=== PATIENT | female | born 1985 | race Caucasian/White ===

== ENCOUNTER 2016-04-30 11:34 | Emergency (ER) | payer OTHER ==
[2016-04-30 13:35] VITALS: BP 142/77
== END 2016-04-30 15:03 | disposition left against medical advice (07) ==
LOC: ED 11:34
DX: M54.2 Cervicalgia (principal); R51 Headache; Z53.21 Procedure and treatment not carried out due to patient leaving prior to being seen by health care provider
CPT/HCPCS: 99281

== ENCOUNTER 2018-02-02 12:20 | Emergency (ER) | payer OTHER ==
--- NOTE | 2018-02-02 13:32 | UC ---
Lower Extremity/Ankle HPI - HPI Summary HPI Summary: Pt. is a 32 y.o female who presents to the ER for swelling and pain to her right leg x 4 days. Pt. states the morning after she was trick or treating with her kids she noticed pain to her right lower leg. She states that pain increased over the last few days and she noticed redness and swelling. She denies any injuries. She fever, chills, CP or SOB. Pt. denies past medical hx. Denies recent hospitalization, long car trips, hormonal control, hx of clots. Symptoms are moderate in severity. Walking makes sxs worse. Rest and elevation make sxs better. Pt. denies IV drug use. - History of Current Complaint Chief Complaint: UCLowerExtremity Stated Complaint: LEG PAIN SWELLING Time Seen by Provider: 02/02/18 13:22 Hx Obtained From: Patient Hx Last Menstrual Period: 02/02/18 Pain Intensity: 7 - Allergies/Home Medications Allergies/Adverse Reactions: Allergies Allergy/AdvReac Type Severity Reaction Status Date / Time No Known Allergies Allergy Verified 02/02/18 13:04 Home Medications: Home Medications Albuterol 0.5% CONC NEB.LENO* 1 unit INH ONCE PRN 02/02/18 [History Confirmed 08/15] PMH/Surg Hx/FS Hx/Imm Hx Previously Healthy: Yes - Surgical History Surgical History: Yes Surgery Procedure, Year, and Place: t&a 2014. tubes tied - Family History Known Family History: Positive: None - Social History Occupation: Employed Full-time Lives: With Family Alcohol Use: Occasionally Substance Use Type: None Smoking Status (MU): Light Every Day Tobacco Smoker Type: Cigarettes Amount Used/How Often: 1/2ppd Have You Smoked in the Last Year: Yes Household Exposure Type: Cigarettes - Immunization History Most Recent Influenza Vaccination: 11/2014 Most Recent Tetanus Shot: up to date Most Recent Pneumonia Vaccination: never had Review of Systems Constitutional: Negative Respiratory: Negative Cardiovascular: Negative Neurovascular: Negative Musculoskeletal: Other: - Right leg pain and swelling Neurological: Negative Is Patient Immunocompromised?: No All Other Systems Reviewed And Are Negative: Yes Physical Exam Triage Information Reviewed: Yes Appearance: Well-Appearing - Pt. sitting in chair in NAD. Vital Signs: Initial Vital Signs Temp 97.5 F 02/02/18 12:56 Pulse 81 02/02/18 12:56 Resp 18 02/02/18 12:56 BP 155/88 02/02/18 12:56 Pulse Ox 98 02/02/18 12:56 Eyes: Positive: Conjunctiva Clear Neck exam: Normal Respiratory: Positive: Lungs clear, Normal breath sounds Cardiovascular: Positive: RRR, No Murmur Musculoskeletal: Positive: Other: - Good palpable pedal pulse to right foot. Diffuse mild edema to foot extending up to below knee. Mild erythema noted along the medial aspect of calf extending behind knee. No induration or fluctuance. Compartment is compressible Neurological Exam: Normal Skin Exam: Other - Numerous healed red bose to bilateral LEs (pt. states they are old flea bites) Lower Extremity Course/Dx - Course Course Of Treatment: IMPRESSION: Pt. presenting with swelling, pain and redness to her right lower leg. She is afebrile with stable VS. No CP or SOB. U/ S ordered for further evaluation. U/S reading per radiology: 1. No sonographic evidence of DEEP vein thrombosis. 2. There is occlusive thrombus from the distal thigh level great saphenous vein extending. to the proximal calf. Case discussed with Dr. Muller. Will treat with NSAIDS since clot is not in proximal saphenous. Naproxen sent to [facility]. Results discussed with pt. Advised head and elevation. To call the [facility] today to schedule an apt. for recheck in 7 days. May need repeat u/s in 7 days if sxs are not improving. To go to ER for increased pain, swelling, CP or SOB. Pt. understands and agrees with plan. - Differential Dx/Diagnosis Differential Diagnosis/HQI/PQRI: Contusion, DVT, Infection, Osteomyelitis, Phlebitis, Sprain, Strain Provider Diagnoses: 1. superficial thrombophlebitis Discharge - Sign-Out/Discharge Documenting (check all that apply): Patient Departure All imaging exams completed and their final reports reviewed: Yes - Discharge Plan Condition: Good Disposition: HOME Prescriptions: Naproxen [Naproxen 500 mg tab] 500 mg PO BID #60 tablet Patient Education Materials: Superficial Thrombophlebitis (ED) Referrals: [facility] [Outside] [facility] [Outside] Additional Instructions: Schedule an appointment with the [facility] within one week You may need repeat ultrasound in one week if symptoms are not improving Take naproxen as directed Apply warm compresses and elevate leg Return to UC or go to the ER for increased pain, redness, swelling, chest pain or shortness of breath - Billing Disposition and Condition Condition: GOOD Disposition: Home
[2018-02-02 15:33] VITALS: BP 136/90
== END 2018-02-02 15:35 | disposition home or self-care (01) ==
LOC: UCEAST 12:20
DX: I80.01 Phlebitis and thrombophlebitis of superficial vessels of right lower extremity (principal); F17.210 Nicotine dependence, cigarettes, uncomplicated
CPT/HCPCS: 99212; G0463